=== PATIENT | female | born 1970 ===

== ENCOUNTER 2018-03-27 07:45 | Outpatient (CLI) | payer OTHER ==
[~2018-03-27] VITALS: Ht 152.4 cm; Wt 62.6 kg
== END 2018-03-27 08:00 | disposition home or self-care (01) ==
LOC: OFIC 805 07:45
DX: H61.23 Impacted cerumen, bilateral (principal); H90.3 Sensorineural hearing loss, bilateral; H60.8X3 Other otitis externa, bilateral

== ENCOUNTER 2018-04-17 07:28 | Outpatient (CLI) | payer OTHER ==
[~2018-04-17] VITALS: Ht 152.4 cm; Wt 62.6 kg
== END 2018-04-17 07:45 | disposition home or self-care (01) ==
LOC: OFIC 805 07:28
DX: H93.11 Tinnitus, right ear (principal); H60.8X3 Other otitis externa, bilateral; H90.3 Sensorineural hearing loss, bilateral

== ENCOUNTER 2018-06-19 08:06 | Outpatient (CLI) | payer OTHER ==
[~2018-06-19] VITALS: Ht 152.4 cm; Wt 62.6 kg
== END 2018-06-19 08:20 | disposition home or self-care (01) ==
LOC: OFIC 805 08:06
DX: H93.11 Tinnitus, right ear (principal); H90.41 Sensorineural hearing loss, unilateral, right ear, with unrestricted hearing on the contralateral side; H61.23 Impacted cerumen, bilateral